=== PATIENT | male | born 1995 | race Caucasian/White ===

== ENCOUNTER 2016-11-28 06:39 | Emergency (ER) | payer OTHER ==
[2016-11-28 07:31] VITALS: BMI 27.4
[2016-11-28] MEDS ORDERED: RANITIDINE HCL 150 MG TABLET (FP) PO ONE (07:35)
[2016-11-28] MEDS ORDERED: MAG HYDROX/AL HYDROX/SIMETH 30 ML UNIT-DOSE CUP PO ONE (07:35)
--- NOTE | 2016-11-28 07:35 | PDOC ---
History of Present Illness - General Chief Complaint: Shortness of Breath Stated Complaint: DIFFICULTY BREATHING Time Seen by Provider: 11/28/16 07:18 - History of Present Illness Initial Comments: 11/28/16 07:42 The patient is a 21 year old male with a history of asthma who presents for evaluation of burning epigastric pain and left ear pain. The patient states that two days ago, he began experiencing left-sided ear pain. He presented to his primary care provider 1 day ago who gave him ibuprofen and zinc with some improvement in his ear pain. However, he reports burning epigastric pain beginning throughout the night prompting his presentation to the ED this morning. He states that the pain is worse with lying flat and is associated with some difficulty with deep breaths. He denies any fevers, chills, chest pain, nausea, vomiting, or changes with bowel movements or urination. Past History - Past Medical History Allergies/Adverse Reactions: Allergies Allergy/AdvReac Type Severity Reaction Status Date / Time shellfish derived Allergy Intermediate itchy Verified 11/28/16 06:52 throat seafood Allergy Intermediate throat Uncoded 11/28/16 06:52 itchiness Home Medications: Ambulatory Orders Azithromycin [Zithromax -] 250 mg PO DAILY #6 tab 11/28/16 Anemia: Yes Asthma: Yes - Immunization History Immunization Up to Date: Yes - Suicide/Smoking/Psychosocial Hx Smoking Status: No Smoking History: Never smoked Have you smoked in the past 12 months: No Number of Cigarettes Smoked Daily: 0 Information on smoking cessation initiated: No Hx Alcohol Use: No Drug/Substance Use Hx: No Review of Systems - Review of Systems Comments:: 11/28/16 07:51 Constitutional: No fevers, chills, fatigue, malaise HEENT: Ear pain. No Rhinorrhea, nasal congestion, Cardiovascular: No chest pain, syncope, palpitations, lightheadedness Respiratory: No Cough, SOB, Hemoptysis, Gastrointestinal: Epigastric abdominal pain. No Nausea, Vomiting, Constipation , Diarrhea, Melena Genitourinary: No Dysuria, Frequency, Urgency, Hesitancy, Hematuria, Flank pain Musculoskeletal: No Myalgia, arthralgia Skin: No rashes, bruising, pallor Neurologic: No Headache, Dizziness, Numbness, Weakness, or Tingling *Physical Exam - Vital Signs Last Vital Signs Temp Pulse Resp BP Pulse Ox 98.6 F 90 18 127/79 99 11/28/16 06:53 11/28/16 06:53 11/28/16 06:53 11/28/16 06:53 11/28/16 06:53 - Physical Exam Comments: 11/28/16 07:51 General Appearance: Nourished. No Apparent Distress HEENT: EOMI, GRACIE. Tympanic membranes normal with normal light reflex. Notable Pharyngeal Erythema, Mild Tonsillar Exudate, and Tonsillar Erythema Neck: No Cervical Lymphadenopathy Respiratory/Chest: Lungs Clear, Normal Breath Sounds. No Crackles, Rales, Rhonchi, Wheezing Cardiovascular: Regular Rhythm, Regular Rate. No Murmur, Gallops, Rubs Gastrointestinal/Abdominal: Normal Bowel Sounds, Soft. Mild epigastric tenderness to palpation. No Guarding, Rebound, Musculoskeletal: No CVA Tenderness Extremity: Normal Capillary Refill Integumentary: Normal Color, Dry, Warm Neurologic: Fully Oriented, Alert, Normal Mood/Affect, Normal Response, Medical Decision Making - Medical Decision Making 11/28/16 07:53 The patient is a 21 year old male with a history of asthma who presents for evaluation of burning epigastric pain and left ear pain. Differential includes but is not limited to: Strep pharyngitis, Otitis media, gastritis, viral syndrome. Given the patient's physical exam notable for mild tonsilar exudates and erythema, it is possible his symptoms are due to a strep pharyngitis. Given his ear exam, it is unlikely his ear pain is due to an otitis media. We will send a rapid strep test to evaluate for strep pharyngitis. His epigastric abdominal pain with associated burning is likely due to a gastritis or GERD and we will treat with zantac and maalox and reassess. 11/28/16 08:44 Rapid strep is negative however given the patient's physical exam and his modified centor criteria of 2, we will treat him with a z-luisito. The patient reports improvement in his symptoms with zantac and maalox. We are comfortable discharging the patient home at this time. We discussed the results with the patient and the plan and he voiced understanding and is agreeable with the plan. *DC/Admit/Observation/Transfer Diagnosis at time of Disposition: Gastritis Qualifiers: Gastritis type: unspecified gastritis Chronicity: acute Gastritis bleeding: without bleeding Qualified Code(s): K29.00 - Acute gastritis without bleeding; K29.00 - Acute gastritis without bleeding Pharyngitis Qualifiers: Pharyngitis/tonsillitis etiology: unspecified etiology Qualified Code(s): J02.9 - Acute pharyngitis, unspecified; J02.9 - Acute pharyngitis, unspecified - Discharge Dispostion Disposition: HOME Condition at time of disposition: Improved Admit: No - Prescriptions Prescriptions: Azithromycin [Zithromax -] 250 mg PO DAILY #6 tab - Patient Instructions Printed Discharge Instructions: DI for Pharyngitis/Tonsillopharyngitis -- Adult Additional Instructions: Please return to the ER if you experience concerning or worsening symptoms including fevers, or chills. Please take the antibiotics we have prescribed you once a day for 6 days. Please follow up with your primary care provider if you have continued symptoms.
[2016-11-28] MEDS ORDERED: RANITIDINE HCL 150 MG TABLET (FP) ONE (08:03)
[2016-11-28] MEDS ORDERED: MAG HYDROX/AL HYDROX/SIMETH 30 ML UNIT-DOSE CUP ONE (08:04)
--- NOTE | 2016-11-28 08:17 | PDOC ---
Attending Attestation - Resident Resident Name: FranciscaSarbjit - ED Attending Attestation I have performed the following: I have examined & evaluated the patient, The case was reviewed & discussed with the resident, I agree w/resident's findings & plan, Exceptions are as noted - HPI HPI: 11/28/16 08:12 21 year old male with history of asthma presents with left ear pain, sore throat and epigastric pain. has been taking motrin for the pain. denies fever. Noted that the symptoms were worsening today. Denies nausea, vomiting, diarrhea. - Physicial Exam PE: 11/28/16 08:16 GENERAL: NAD, AAOx3 HEENT: Posterior oropharynx with erythema and purulence, no evidence of [employer] TMs clear without exudates or rupture bilaterally CV: RRR, +s1, s2 PULM: CTA b/l ABD: soft, very mildly tender to epigastric, negative wei. no rebound, no guarding. - Medical Decision Making 11/28/16 08:17 Vital Signs Temp Pulse Resp BP Pulse Ox 98.6 F 90 18 127/79 99 11/28/16 06:53 11/28/16 06:53 11/28/16 06:53 11/28/16 06:53 11/28/16 06:53 This patient finding concerning for strep pharyngitis. Will need rapid strep. Modified Centor Criteria: 2 points Rapid strep is negative. However, will treat empirically while throat cultures pending pt feels much better with GERD medications, which I suspect he had some gastritis. Will d/c with azithromycin
[2016-11-28 09:20] VITALS: BP 106/63; PULSE 81; TEMP 97.7
== END 2016-11-28 09:20 | disposition home or self-care (01) ==
LOC: JER 06:39
DX: K29.00 Acute gastritis without bleeding (principal); J02.9 Acute pharyngitis, unspecified
CPT/HCPCS: 87070; 87430; 99283-25

== ENCOUNTER 2018-12-28 09:43 | Emergency (ER) | payer OTHER ==
[2018-12-28 09:59] VITALS: BMI 29.7
[2018-12-28] MEDS ORDERED: methylPREDNISolone NA SUCC 125 MG/2 ML VIAL IVPB ONE (10:04)
[2018-12-28] MEDS ORDERED: FAMOTIDINE 20 MG/50 ML IVPB 20 MG in PREMIX 50 IVPB ONE (10:05)
[2018-12-28] MEDS ORDERED: FAMOTIDINE 20 MG/50 ML IVPB 20 MG/50 ML MG IVPB ONE (10:10)
[2018-12-28] MEDS ORDERED: methylPREDNISolone NA SUCC 125 MG/2 ML VIAL ONE (10:10)
--- NOTE | 2018-12-28 10:21 | PDOC ---
History of Present Illness - General Chief Complaint: Allergic Reaction Stated Complaint: ALLERGRIC REACTION Time Seen by Provider: 12/28/18 10:00 History Source: Patient Exam Limitations: No Limitations - History of Present Illness Initial Comments: 12/28/18 10:17 CHIEF COMPLAINT: Lip swelling HISTORY OF PRESENT ILLNESS: This is a 23-year-old male with a history of shellfish allergy (has never required admission or epinephrine) and childhood asthma (has never required hospital admission) who presents complaining of 2 weeks of intermittent rash to arms. He was prescribed hydrocortisone cream for this which has helped somewhat. This morning, the patient awoke with new lower lip swelling prompting him to present to the ED. He has a sensation of throat tightness, but denies any difficulty breathing, wheezing, or difficulty swallowing. He has not eaten in a restaurant recently and does not believe that he has ingested shellfish. He has no other known food or drug allergies. He is not taking any medications. Vital signs on arrival are all within normal limits. REVIEW OF SYSTEMS: GENERAL/CONSTITUTIONAL: No fever or chills. No weakness. No weight change. HEAD, EYES, EARS, NOSE AND THROAT: Lower lip swelling. Sensation of throat tightness. No drooling/difficulty swallowing. CARDIOVASCULAR: No chest pain or palpitations. RESPIRATORY: No cough, wheezing, or shortness of breath. GASTROINTESTINAL: No nausea, vomiting, diarrhea or constipation. GENITOURINARY: No dysuria, frequency, or change in urination. MUSCULOSKELETAL: No joint or muscle swelling or pain. No neck or back pain. SKIN: Intermittent, itchy rash to bilateral arms. Sometimes notes rash in other areas such as legs, feet, genitals, however none currently. NEUROLOGIC: No headache, vertigo, loss of consciousness, or loss of sensation. PSYCHIATRIC: No depression or anxiety. ENDOCRINE: No increased thirst. No abnormal weight change. HEMATOLOGIC/LYMPHATIC: No anemia, easy bleeding, or history of blood clots. ALLERGIC/IMMUNOLOGIC: History of shellfish allergy (reports allergy testing in childhood). PHYSICAL EXAM: GENERAL: The patient is awake, alert, and fully oriented, in no acute distress. ENT: Lower lip swelling, right side greater than left. No tongue swelling. No uvular swelling. Pupils equal, round and reactive to light, extraocular movements intact, sclera anicteric, conjunctiva clear. Neck supple. LUNGS: Clear to auscultation bilaterally. Normal excursion. No respiratory distress or use of accessory muscles. CV: RRR, S1/S2, no MRG. Cap refill < 2 sec. ABDOMEN: Soft, non-distended, non-tender. EXTREMITIES: Normal range of motion, no edema. NEUROLOGICAL: Normal speech, normal gait. CN II-XII grossly intact. PSYCH: Normal mood, normal affect. SKIN: Blanching, macular-papular rash to bilateral arms. 12/28/18 10:19 Past History - Past Medical History Allergies/Adverse Reactions: Allergies Allergy/AdvReac Type Severity Reaction Status Date / Time shellfish derived Allergy Intermediate itchy Verified 12/28/18 10:27 throat seafood Allergy Intermediate throat Uncoded 12/28/18 10:27 itchiness Home Medications: Ambulatory Orders NK [No Known Home Medication] 12/28/18 Anemia: Yes Asthma: Yes COPD: No - Immunization History Immunization Up to Date: Yes - Psycho Social/Smoking Cessation Hx Smoking Status: No Smoking History: Never smoked Have you smoked in the past 12 months: No Number of Cigarettes Smoked Daily: 0 Information on smoking cessation initiated: No Hx Alcohol Use: No Drug/Substance Use Hx: No Substance Use Type: None *Physical Exam - Vital Signs Last Vital Signs Temp Pulse Resp BP Pulse Ox 98.2 F 71 18 117/84 99 12/28/18 09:54 12/28/18 09:54 12/28/18 09:54 12/28/18 09:54 12/28/18 09:54 Medical Decision Making - Medical Decision Making 12/28/18 10:21 A/P: 23-year-old male with angioedema, likely secondary to allergic reaction. No signs of airway compromise. -IV Benadryl 25 mg -IV Solu-Medrol 125 mg -IV Pepcid 20 mg -ENT paged to discuss scoping/next steps 12/28/18 11:22 Patient re-evaluated, states feels slightly better. Re-examined and without edema to tongue, uvula, floor of mouth. Lip edema unchanged. Discussed with Dr. Contreras - ENT. Will see patient in office at 12p. Discharge - Discharge Information Problems reviewed: Yes Clinical Impression/Diagnosis: Angioedema Condition: Stable Disposition: HOME - Admission No - Follow up/Referral Referrals: Phani Claudio MD [Staff Physician] - (TODAY AT 12:00 PM) - Patient Discharge Instructions Patient Printed Discharge Instructions: DI for Angioedema Additional Instructions: You were given 125mg SoluMedrol, 25mg Benadryl, 20mg Pepcid IV in the ER at 9: 30am. You are being referred to Dr. Contreras at [facility] for further evaluation - please go directly there for your 12pm appt. You were prescribed prednisone, Pepcid, Benadryl, and an Epi-Pen. The Epi-Pen is for use only in emergencies (if you feel you are unable to swallow or breathe). Come to the ER immediately if you use the EpiPen. Return here for any new or concerning symptoms. - Post Discharge Activity
[2018-12-28 11:28] VITALS: BP 105/67; PULSE 61; TEMP 98.3
== END 2018-12-28 11:47 | disposition home or self-care (01) ==
LOC: JER 09:43
PROC: 3E033GC Introduction of Other Therapeutic Substance into Peripheral Vein, Percutaneous Approach (ICD-10-PCS; principal; 2018-12-28)
PROC: 3E0333Z Introduction of Anti-inflammatory into Peripheral Vein, Percutaneous Approach (ICD-10-PCS; 2018-12-28)
PROC: 3E033GC Introduction of Other Therapeutic Substance into Peripheral Vein, Percutaneous Approach (ICD-10-PCS; 2018-12-28)
DX: T78.3XXA Angioneurotic edema, initial encounter (principal); T78.40XA Allergy, unspecified, initial encounter; Z91.013 Allergy to seafood
CPT/HCPCS: 99282-25